=== PATIENT | female | born 2000 | race African-American/Black ===

== ENCOUNTER 2023-05-18 06:10 | Emergency (ER) | payer SELFPAY ==
[2023-05-18 06:37] LABS: Bilirubin Neg (Negative); Blood, Urine 250 (Negative); Clarity Slightly Cloudy (Clear); Glucose, Urine (Dipstick) Normal (Negative); Ketone, Urine Negative (Negative); Leukocyte Negative (Negative); Nitrite Negative (Negative); Protein, Urine (Dipstick) 15 mg/dl (Neg-Trace); Urobilinogen Normal mg/dL (Less than 2)
[2023-05-18 06:39] LABS: CAUTI Indications for Culture Pelvic or flank pain
[2023-05-18 06:40] LABS: Pregnancy Test - Urine (BHCG) Negative (Negative); Pregu Control Background? CLEAR/WHITE (CLR/WHITE); Pregu Control Bar Appear? YES (CONTROL BAR)
[2023-05-18 06:45] LABS: Bacteria/HPF None Seen HPF (None Seen); RBC/HPF 21-50 HPF (0-3); Squamous Epithelial 0-3 HPF (0-3); WBC/HPF 0-3 HPF (0-3)
[2023-05-18 06:46] LABS: Urine Culture Reflex No No
[2023-05-18 06:47] LABS: #Eosinphils 0.1 10x3/uL (0.0-0.5); #Monocytes 0.4 10x3/uL (0.0-1.1); #Neutrophils 3.2 10x3/uL (1.5-8.4); %Basophils 0.6 % (0.0-2.0); %Lymphocytes 27.2 % (18.0-47.0); %Monocytes 7.9 % (0.0-10.0); %Neutrophils 62.1 % (40.0-75.0); Hemoglobin 12.3 g/dL (12.0-15.5); Mean Corpuscular HGB CONC 32.5 g/dL (32.0-36.0); Mean Corpuscular Hemoglobin 27.2 pg (27.0-33.0); Mean Corpuscular Volume 83.4 fl (81.6-98.3); Mean Platelet Volume 10.5 fl (7.4-10.4); Platelet Count 279 10x3/uL (150-450); RBC Distribution Width 12.9 % (11.5-14.5); Red Blood Cell (RBC) Count 4.53 10x6/uL (3.90-5.03); White Blood Cell (WBC) Count 5.1 10x3/uL (3.5-10.5)
== END 2023-05-18 07:37 | disposition home or self-care (01) ==
LOC: CSHERS 06:10
DX: N92.6 Irregular menstruation, unspecified (principal)
CPT/HCPCS: 36415; 81001; 81025; 85025; 99284

== ENCOUNTER 2023-10-22 18:15 | Emergency (ER) | payer MEDICAID, SELFPAY ==
[2023-10-22 18:49] LABS: Bilirubin Neg (Negative); Blood, Urine 150 (Negative); Clarity Clear (Clear); Glucose, Urine (Dipstick) Normal (Negative); Ketone, Urine Negative (Negative); Leukocyte Negative (Negative); Nitrite Negative (Negative); Protein, Urine (Dipstick) Negative (Neg-Trace); Urobilinogen Normal mg/dL (Less than 2)
[2023-10-22 18:50] LABS: Pregnancy Test - Urine (BHCG) POSITIVE (Negative); Pregu Control Background? CLEAR/WHITE (CLR/WHITE); Pregu Control Bar Appear? YES (CONTROL BAR)
[2023-10-22] MEDS ORDERED: Ondansetron ODT 4 MG TAB ONE (19:04)
[2023-10-22 19:05] LABS: Bacteria/HPF Rare-Few HPF (None Seen); CAUTI Indications for Culture Pregnancy; RBC/HPF 0-3 HPF (0-3); Squamous Epithelial 0-3 HPF (0-3); Urine Culture Reflex Yes Yes; WBC/HPF 0-3 HPF (0-3)
[2023-10-22 20:27] LABS: #Eosinphils 0.1 10x3/uL (0.0-0.5); #Monocytes 0.5 10x3/uL (0.0-1.1); #Neutrophils 5.2 10x3/uL (1.5-8.4); %Basophils 0.4 % (0.0-2.0); %Eosinophils 1.3 % (0.0-6.0); %Lymphocytes 26.5 % (18.0-47.0); %Monocytes 5.9 % (0.0-10.0); %Neutrophils 65.6 % (40.0-75.0); Hematocrit 35.1 % (34.9-44.5); Hemoglobin 11.6 g/dL (12.0-15.5); Mean Corpuscular Hemoglobin 26.8 pg (27.0-33.0); Mean Corpuscular Volume 81.1 fl (81.6-98.3); Platelet Count 259 10x3/uL (150-450); RBC Distribution Width 13.3 % (11.5-14.5); Red Blood Cell (RBC) Count 4.33 10x6/uL (3.90-5.03); White Blood Cell (WBC) Count 7.9 10x3/uL (3.5-10.5)
[2023-10-22 20:38] LABS: ALT (SGPT) 41 U/L (8-55); AST (SGOT) 25 U/L (5-34); Alkaline Phosphatase 29 U/L (40-110); Anion Gap 11 mmol/L (10-20); BUN (Urea Nitrogen) 8 mg/dL (7.0-18.7); Bilirubin, Total 0.3 mg/dL (0.2-1.2); Calc. Creatinine Clearance 0 mL/min (70-130); Calcium 9.5 mg/dL (7.8-10.44); Carbon Dioxide 22 mmol/L (22-29); Chloride 107 mmol/L (98-107); Estimated GFR 129; Globulin 3.1 g/dL (2.4-3.5); Glucose 82 mg/dL (70-105); Potassium 3.9 mmol/L (3.5-5.1); Protein, Total 7.1 g/dL (6.0-8.3); Sodium 136 mmol/L (136-145)
== END 2023-10-22 23:00 | disposition home or self-care (01) ==
LOC: CSHERS 18:15
DX: O20.0 Threatened abortion (principal); Z3A.11 11 weeks gestation of pregnancy
CPT/HCPCS: 36415; 76856; 80053; 81001; 81025; 84702; 85025; 86850; 86900; 86901; 87086; 90384; 96372; Q0162

== ENCOUNTER 2023-12-04 08:26 | Outpatient (CLI) | payer OTHER | END 2023-12-04 08:27 | disposition home or self-care (01) | LOC: CSHULT 08:26 | PROVIDERS: ATTEND Family Medicine | DX: Z34.02 Encounter for supervision of normal first pregnancy, second trimester (principal); Z3A.17 17 weeks gestation of pregnancy | CPT/HCPCS: 76805 ==

== ENCOUNTER 2023-12-18 11:59 | Emergency (ER) | payer OTHER ==
[2023-12-18 13:07] LABS: Influenza A by NAA Not Detected (NotDetected); Influenza B by NAA Not Detected (NotDetected); SARS-CoV-2 NAA Rapid Test Not Detected (NotDetected)
== END 2023-12-18 13:44 | disposition home or self-care (01) ==
LOC: CSHERS 11:59
DX: J06.9 Acute upper respiratory infection, unspecified (principal); Z75.3 Unavailability and inaccessibility of health-care facilities
CPT/HCPCS: 87081; 87430; 99283

== ENCOUNTER 2024-04-22 02:52 | Day surgery (SDC) | payer OTHER ==
[2024-04-22] MEDS ORDERED: hydrALAZINE 20 MG/ML VIAL SLOW IVP PRN (02:59)
[2024-04-22 03:08] VITALS: BMI 37.3
[2024-04-22] MEDS: hydrOXYzine 25 MG TAB PO SCH (03:48)
== END 2024-04-22 03:56 | disposition home or self-care (01) ==
LOC: CSHLD/OP 02:52
PROVIDERS: ATTEND Family Medicine
DX: O26.893 Other specified pregnancy related conditions, third trimester (principal); L29.9 Pruritus, unspecified; Z3A.38 38 weeks gestation of pregnancy; Z79.82 Long term (current) use of aspirin; Z79.899 Other long term (current) drug therapy

== ENCOUNTER 2024-04-27 15:07 | Inpatient (IN) | payer OTHER ==
[2024-04-28] MEDS ORDERED: HYDROcodone/Acetaminophen 5/325 mg Tablet PO PRN (01:47)
[2024-04-28] MEDS ORDERED: Promethazine HCl 25 MG/ML VIAL IM PRN ×4 (01:47→22:11)
[2024-04-28] MEDS ORDERED: Carboprost 250 MCG/ML AMP IM PRN (01:47)
[2024-04-28] MEDS ORDERED: Oxytocin 30 units/NS 500 ML 500 ML IV SCH ×3 (01:47)
[2024-04-28] MEDS ORDERED: Diphenoxylate HCl/Atropine Tablet PO PRN (01:47)
[2024-04-28] MEDS ORDERED: Methylergonovine 0.2 MG/ML VIAL IM PRN (01:47)
[2024-04-28] MEDS ORDERED: Misoprostol 200 MCG TAB PR PRN (01:47)
[2024-04-28] MEDS ORDERED: hydrALAZINE 20 MG/ML VIAL SLOW IVP PRN ×2 (01:47→22:11)
[2024-04-28] MEDS ORDERED: Tranexamic Acid 1,000 MG/10 ML VIAL IVP PRN (01:47)
[2024-04-28 02:57] LABS: Hematocrit 33.6 % (34.9-44.5); Hemoglobin 11.1 g/dL (12.0-15.5); Mean Corpuscular Hemoglobin 26.1 pg (27.0-33.0); Mean Corpuscular Volume 78.9 fL (81.6-98.3); Mean Platelet Volume 13.5 fL (7.4-10.4); Platelet Count 231 10x3/uL (150-450); RBC Distribution Width 14.8 % (11.5-14.5); Red Blood Cell (RBC) Count 4.26 10x6/uL (3.90-5.03); White Blood Cell (WBC) Count 7.5 10x3/uL (3.5-10.5)
[2024-04-28] MEDS: Misoprostol 100 MCG TAB PO SCH (03:03)
[2024-04-28] MEDS: Penicillin G Potassium 5 MILL.UNITS VIAL ONE (03:04)
[2024-04-28 03:07] LABS: ALT (SGPT) 165 U/L (8-55); AST (SGOT) 81 U/L (5-34); Albumin 2.9 g/dL (3.5-5.0); Alkaline Phosphatase 140 U/L (40-110); Anion Gap 13 mmol/L (10-20); BUN (Urea Nitrogen) 11 mg/dL (7.0-18.7); Bilirubin, Total 0.3 mg/dL (0.2-1.2); Calc. Creatinine Clearance 0 mL/min (70-130); Calcium 9.4 mg/dL (7.8-10.44); Carbon Dioxide 19 mmol/L (22-29); Chloride 106 mmol/L (98-107); Estimated GFR 112; Globulin 3.7 g/dL (2.4-3.5); Glucose 100 mg/dL (70-105); Potassium 4.1 mmol/L (3.5-5.1); Protein, Total 6.6 g/dL (6.0-8.3); Sodium 134 mmol/L (136-145)
[2024-04-28 03:22] VITALS: BMI 37.5
[2024-04-28 03:29] LABS: Syphilis Antibody Nonreactive (Nonreactive); Syphilis Antibody Index 0.31 S/CO (<1.00 Non-Reactive)
[2024-04-28 03:31] LABS: HBsAg Index 0.18 S/CO (0-0.99); Hep B Surf Ag - L&D Non-Reactive S/CO (NonReactive)
[2024-04-28] MEDS: Penicillin G 2.5 MILL.units 2.5 MILL.UNITS in Premix 1 BAG IVPB SCH (07:30)
[2024-04-28] MEDS: fentaNYL 50 mcg/mL 1 mL Vial SLOW IVP PRN (11:19)
[2024-04-28] MEDS: Lactated Ringer's 1,000 ML IV SCH (12:21)
[2024-04-28] MEDS: Penicillin G Potassium 5 MILL.UNITS in Sodium Chloride 0.9% 100 ML IVPB SCH (12:21)
[2024-04-28] MEDS: Ondansetron PF 4 MG/2 ML Vial IVP PRN (12:37)
[2024-04-28] MEDS ORDERED: Ondansetron PF 4 MG/2 ML Vial IVP PRN ×3 (17:47→22:11)
[2024-04-28] MEDS ORDERED: Moisturizing Cream (Eucerin) 113 GM JAR TOP PRN ×2 (17:47)
[2024-04-28] MEDS ORDERED: ePHEDrine Sulfate 50 MG/10 ML VIAL SLOW IVP PRN ×2 (17:47)
[2024-04-28] MEDS ORDERED: Acetaminophen 325 MG TAB PO PRN ×2 (17:47)
[2024-04-28] MEDS ORDERED: Naloxone HCl 0.4 mg/ml Vial IVP PRN ×4 (17:47)
[2024-04-28] MEDS ORDERED: diphenhydrAMINE 50 MG/ML VIAL IVP PRN ×2 (17:47)
[2024-04-28] MEDS ORDERED: Lactated Ringer's 500 ML IV PRN ×2 (17:47)
[2024-04-28] MEDS ORDERED: fentaNYL 2 mcg/Ropivacaine 0.2% Epidural 100 ML CADD EPIDURAL SCH (18:00)
[2024-04-28] MEDS ORDERED: Communication Order-Pharmacy FS SCH ×2 (18:00)
[2024-04-28] MEDS: fentaNYL/Ropivacaine Epidural 100 ML ONE (20:03)
[2024-04-28] MEDS: Lidocaine 1% (PF) 30 ML VIAL SC PRN (21:21)
[2024-04-28] MEDS: Acetaminophen 500 MG TAB PO PRN (21:57)
[2024-04-28] MEDS ORDERED: Milk Of Magnesia 30 ML UDCUP PO PRN (22:11)
[2024-04-28] MEDS ORDERED: diphenhydrAMINE 25 MG CAP PO PRN (22:11)
[2024-04-28] MEDS ORDERED: Lanolin Ointment 7 GM TUBE TOP PRN (22:11)
[2024-04-28] MEDS ORDERED: Bisacodyl 10 MG SUPP PR PRN (22:11)
[2024-04-28] MEDS: Boostrix 0.5 ML (Tdap) VIAL (>/=7 yrs of age) IM ONE (22:26)
[2024-04-28] MEDS: Ibuprofen 800 MG TAB PO SCH (22:36)
[2024-04-28] MEDS: Ibuprofen 800 MG TAB PO PRN (22:36)
[2024-04-29] MEDS: HYDROcodone/Acetaminophen 5/325 mg Tablet PO PRN (02:16)
[2024-04-29] MEDS: Prenatal Vitamin 1 TAB PO SCH (07:25)
[2024-04-29] MEDS: Docusate 100 MG CAP PO SCH (07:25)
[2024-04-29] MEDS: Ferrous Sulfate 325 MG TAB PO SCH (07:35)
[2024-04-30] MEDS: Benzocaine-Menthol 82.5 ML CAN TOP PRN (05:50)
[2024-04-30] MEDS ORDERED: Bupivacaine 0.25% HCL 30 ML VIAL ONE (08:00)
[2024-04-30 08:02] VITALS: BP 115/65; TEMP 98.6
== END 2024-04-30 15:55 | disposition home or self-care (01) | DRG 807 ==
LOC: CSHLD 04-28 01:28 → CSHPP 04-28 23:54
PROVIDERS: ADMIT Family Medicine; ATTEND Family Medicine
PROC: 10E0XZZ Delivery of Products of Conception, External Approach (ICD-10-PCS; principal; 2024-04-28)
PROC: 0KQM0ZZ Repair Perineum Muscle, Open Approach (ICD-10-PCS; 2024-04-28)
PROC: 10907ZC Drainage of Amniotic Fluid, Therapeutic from Products of Conception, Via Natural or Artificial Opening (ICD-10-PCS; 2024-04-28)
PROC: 3E033XZ Introduction of Vasopressor into Peripheral Vein, Percutaneous Approach (ICD-10-PCS; 2024-04-28)
PROC: 3E0334Z Introduction of Serum, Toxoid and Vaccine into Peripheral Vein, Percutaneous Approach (ICD-10-PCS; 2024-04-29)
DX: O26.643 Intrahepatic cholestasis of pregnancy, third trimester (principal); Z37.0 Single live birth; Z3A.38 38 weeks gestation of pregnancy; O99.824 Streptococcus B carrier state complicating childbirth; O70.1 Second degree perineal laceration during delivery; O26.893 Other specified pregnancy related conditions, third trimester; Z67.11 Type A blood, Rh negative
CPT/HCPCS: 36415; 80053; 85027; 85461; 86780; 86850; 86870; 86900; 86901; 87340; 90384; 96372; J0665; J2001; J2405; J2540; J3010

== ENCOUNTER 2024-05-15 16:19 | Emergency (ER) | payer OTHER ==
[2024-05-15 18:29] LABS: Bilirubin Neg (Negative); Blood, Urine 50 (Negative); Clarity Cloudy (Clear); Glucose, Urine (Dipstick) Normal (Negative); Ketone, Urine Negative (Negative); Leukocyte 500 (Negative); Nitrite Negative (Negative); Protein, Urine (Dipstick) 15 mg/dl (Neg-Trace); Urobilinogen Normal mg/dL (Less than 2)
[2024-05-15 18:36] LABS: CAUTI Indications for Culture Pelvic or flank pain; WBC/HPF 21-50 HPF (0-3)
[2024-05-15 18:37] LABS: Bacteria/HPF 2+ HPF (None Seen); Mucous/LPF 2+ LPF (<2+); Transitional Epithelial 0-3 HPF (None Seen)
[2024-05-15 18:38] LABS: Urine Culture Reflex Yes Yes
== END 2024-05-15 19:42 | disposition home or self-care (01) ==
LOC: CSHERS 16:19
DX: N76.0 Acute vaginitis (principal)
CPT/HCPCS: 81001; 87086; 87480; 87510; 87660; 99283

== ENCOUNTER 2024-11-28 23:03 | Emergency (ER) | payer OTHER | END 2024-11-28 23:55 | disposition home or self-care (01) | LOC: CSHERS 23:03 | DX: J02.9 Acute pharyngitis, unspecified (principal) | CPT/HCPCS: 87081; 87430; 99283 ==

== ENCOUNTER 2025-05-12 08:15 | Emergency (ER) | payer OTHER ==
[2025-05-12] MEDS ORDERED: Acetaminophen 500 MG TAB ONE (08:56)
[2025-05-12 09:16] LABS: Glucose, Urine (Dipstick) Normal (Negative); Leukocyte 25 (Negative); Protein, Urine (Dipstick) 30 mg/dl (Neg-Trace); Specific Gravity, Urine 1.015 (1.005-1.030)
[2025-05-12 09:43] LABS: CAUTI Indications for Culture Pelvic or flank pain; RBC/HPF 0-3 HPF (0-3)
[2025-05-12 09:44] LABS: Bacteria/HPF 1+ HPF (None Seen); Pregnancy Test - Urine (BHCG) Negative (Negative); Pregu Control Background? CLEAR/WHITE (CLR/WHITE); Pregu Control Bar Appear? YES (CONTROL BAR); Urine Culture Reflex No No
[2025-05-12] MEDS ORDERED: Ketorolac Tromethamine 30 MG (1 mL) VIAL ONE (09:54)
== END 2025-05-12 11:08 | disposition home or self-care (01) ==
LOC: CSHERS 08:15
DX: U07.1 COVID-19 (principal)
CPT/HCPCS: 81001; 81025; 87081; 87428; 87430; 96374; J1885; Q0162

== ENCOUNTER 2025-06-24 14:36 | Emergency (ER) | payer OTHER | END 2025-06-24 15:57 | disposition home or self-care (01) | LOC: CSHERS 14:36 | DX: J02.9 Acute pharyngitis, unspecified (principal); H65.91 Unspecified nonsuppurative otitis media, right ear | CPT/HCPCS: 87081; 87426; 87430; 96372; 99283; J1100 ==